=== PATIENT | male | born 1970 | race Caucasian/White ===

== ENCOUNTER 2024-04-22 08:32 | Emergency (ER) | payer MEDICAID, SELFPAY ==
--- NOTE | 2024-04-22 | XR_ITS ---
Examination: MRI lumbar spine without contrast Date and time of exam: April 22, 2024 1244 hrs. Comparison September 23, 2018 Technique: Multiple MRI axial and sagittal sections lumbar spine. Sagittal T2-weighted images, TR 3500, TE 118 T1 weighted transverse sections, TR 688 T8.5, T2-weighted sagittal sections T1 weighted sagittal sections TR 621, TE 30 T2 axial sections, TR 4, 190, TE 84. Findings: Adequate alignment lumbar vertebral bodies No lumbar fracture Moderate degenerative disc disease L3-L4, L5-S1 Disc desiccation lower 3 lumbar levels L5-S1 4 mm central left paracentral disc bulge with mild bilateral L5 ganglionic compression L4-L5 4 mm central lumbar disc bulge L3-L4 4 mm central lumbar disc bulge with mild bilateral L3 ganglionic compression L2-L3 no disc protrusion Impression: L5 is: 4 mm central left paracentral disc bulge with mild bilateral L5 ganglionic compression L4-L5 4 mm central lumbar disc bulge L3-L4 4 mm central lumbar disc bulge with mild bilateral L3 ganglionic compression
[2024-04-22 09:03] VITALS: BP 140/65; PULSE 85; RESP 19; TEMP 36.6; O2SAT 95; BMI 33.7
--- NOTE | 2024-04-22 09:30 | XR_ITS ---
Examination: CT abdomen with intravenous contrast CT pelvis with intravenous contrast 2-D coronal reconstructions 2-D sagittal reconstructions Date and time of exam:April 22, 2024 at 1041 hrs. Indications: Onset lower abdominal pain lower back pain today. CTDI: vol (mGy) 10.3 DLP: (mGycm) 665 Technique: Multiple axial sections of the abdomen and pelvis have been obtained. 64 slice high-resolution scanner used. 3 mm axial sections have been obtained, post intravenous injection 60 cc [id number] 2-D sagittal, coronal reconstructions obtained. Low dose protocols were performed. One or more of the following dose reduction techniques were used; automated exposure control, adjustment of the mA and/or KV according to patient size, use of iterative reconstruction technique. Findings: No focal liver or splenic lesions No gallstones No pancreatic or adrenal mass No renal or ureteral calculi 18 mm posterior right renal cyst Normal appendix No bowel obstruction No diverticulitis Urinary bladder wall thickening up to 7.5 mm No prostatomegaly Moderate disc narrowing L3-L4, L5-S1 with mild lumbar spondylosis L5-S1 4 mm central lumbar disc bulge contiguous with the right and left S1 nerve roots, extending to the right intervertebral foramen, sagittal image 119, moderate right L5 ganglionic compression L4-L5 3 mm central lumbar disc bulge L3-L4 partially calcified 4 mm central lumbar disc bulge extending to the right foraminal region with moderate right L3 ganglionic compression Impression: Normal appendix No bowel obstruction Moderate degenerative disc disease L3-L4, L5-S1 L5-S1 4 mm central lumbar disc bulge contiguous with the right and left S1 nerve roots with moderate right L5 ganglionic compression L4-L5 3 mm central lumbar disc bulge L3-L4 partially calcified 4 mm central lumbar disc bulge with moderate right L3 ganglionic compression
--- NOTE | 2024-04-22 09:32 | PD.EDRME ---
Rapid Medical Screening Exam RME Arrival date/time: 04/22/24 08:32 Chief Complaint: Back Pain/Injury Time Seen by Provider: 04/22/24 09:02 Vital signs: Vital Signs Temperature 97.8 F 04/22/24 09:03 Pulse Rate 85 04/22/24 09:03 Respiratory Rate 19 04/22/24 09:03 Blood Pressure 140/65 H 04/22/24 09:03 Pulse Oximetry (%) 95 04/22/24 09:03 Oxygen Delivery Method Room Air 04/22/24 09:03 Vital signs reviewed by provider: Yes RME Narrative: 54-year-old male presents for evaluation of right flank pain radiating to his right lower quadrant x 1 week. History is significant for prior imaging which showed possible epidural cyst of lumbar spine. Patient endorses nausea without vomiting. Denies fever, chills, chest pain, hematuria, dysuria.
--- NOTE | 2024-04-22 10:00 | EDNOTE_ITS ---
ED Back Injury Pain RME/HPI General Chief Complaint: Back Pain/Injury Stated Complaint: LOWER BACK PAIN Time Seen by Provider: 04/22/24 09:02 Arrival date/time: 04/22/24 08:32 Limitations: no limitations RME / HPI RME / HPI Narrative: 54-year-old male presents for evaluation of right flank pain radiating to his right lower quadrant x 1 week. History is significant for prior imaging which showed possible epidural cyst of lumbar spine. Patient endorses nausea without vomiting. Denies fever, chills, chest pain, hematuria, dysuria. History of Present Illness (HPI) Dr. Jose Grider ED Evaluation: A 54-year-old male with a history of hypertension (not currently on medications) and a previous epidural abscess diagnosed via MRI in 2019, presents to the ED with a complaint of a burning sensation in his pubic area beginning five days ago. He also reports a bulging sensation in the right inguinal hernia region and back pain, primarily localized to the right L3-L4 area. He has a history of similar back pain in 2019, when he was diagnosed with an epidural abscess and an epidural cyst after being transferred to [facility]. He denies fevers, chills, sweats, chest pain, cough, short ness of breath, diarrhea, constipation, or urinary symptoms. Bedside examination reveals a small hernia, palpable only at the right inguinal canal with Valsalva maneuver, without tenderness to palpation. There is no rash or skin breakout. The pain appears to follow the distribution of the L1 dermatome and radiates down to the leg, consistent with an L2 dermatome pattern. Both a CT with contrast and an MRI of the lumbar spine were ordered. The pain is assessed not to originate from the hernia. Dr. Benites, the general surgeon, reviewed the imaging studies and concurred that the symptoms are not due to the small, non-tender hernia. This information was communicated to the patient and his , with a recommendation for follow-up with his primary care provider to conduct nerve conduction studies. In the meantime, [id number] pain remedies were suggested. The patient does not exhibit any symptoms of cauda equina syndrome and walks without a limp. Differential Diagnoses (Ddx) * Lumbar Radiculopathy: Given the dermatomal distribution of the pain and its radiation to the leg. * Epidural Abscess: Given the patient's history, although less likely without systemic symptoms. * Epidural Cyst: Similar to past diagnosis, requiring imaging confirmation. * Inguinal Hernia: While considered, it was determined not to be the primary cause of symptoms. * Neuropathy: Possibly related to hypertensive neuropathy or other nerve involvement. Medical Decision Making (Mdm) * Diagnostic Imaging: * CT Scan with Contrast: To assess for any acute abnormalities. * MRI of Lumbar Spine: To evaluate for epidural abscess, cyst, or other spinal pathology. * Referral for Nerve Conduction Studies: To assess for potential neuropathic cau ses of pain. * Pain Management: [id number] pain medications as needed. * Follow-Up: With primary care provider for ongoing management and further diagnostic workup. * Patient Education: * Explanation of findings and reassurance. * Guidance on activity modification to avoid exacerbating symptoms. Related Data Home Medications ?Medication ?Instructions ?Recorded ?Confirmed gabapentin 300 mg capsule 300 mg PO QDAY 09/23/18 09/23/18 Allergies Allergy/AdvReac Type Severity Reaction Status Date / Time No Known Allergies Allergy Verified 04/22/24 08:33 Review of Systems Review of Systems Systems Reviewed: All systems reviewed, normal except as documented Past Medical History Past Medical History CARDIAC: Positive Hypertension (NOT ON MEDS); Negative Cardiac Disorders or Congestive Heart Failure RESPIRATORY: Negative Respiratory Disorders, Chronic Obstructive Pulmonary D isease (COPD) or Asthma GENITOURINARY: Negative Renal Disease ENDOCRINE: Negative Diabetes Mellitus Type 1 or Diabetes Mellitus Type 2 HEMATOLOGIC: Negative Sickle Cell Disease Social History SMOKING STATUS: Never smoker SUBSTANCE USE: does not use ED Exam General Limitations: Present no limitations General appearance: Present alert and in no apparent distress Head Head exam: Present atraumatic, normocephalic and normal inspection Eye Eye exam: Present normal appearance, PERRL and EOMI ENT ENT exam: Present normal exam, normal oropharynx and mucous membranes moist Neck Neck exam: Present normal inspection, full ROM and trachea midline Chest Chest inspection: Present normal inspection and symmetric chest wall rise Respiratory Respiratory exam: Present normal lung sounds bilaterally Cardiovascular Cardiovascular exam: Present regular rate, normal rhythm and normal heart sounds Abdominal Exam Abdominal exam: Present soft, normal bowel sounds and other (Positive hernia with coughing only, felt at the right inguinal canal) Extremities Exam Extremities exam: Present normal inspection and full ROM Back Exam Back exam: Present normal inspection and full ROM Neurological Exam Neurological exam: Present alert, oriented X3 and CN II-XII intact Psychiatric Psychiatric exam: Present normal affect and normal mood Skin Skin exam: Present warm, dry, intact and normal color Course Quality Measures none Orders Category Date Time Status CT Screening NOW Care 04/22/24 09:30 Active Insert IV NOW Care 04/22/24 09:33 Active MRI Screening NOW Care 04/22/24 10:[address] abdomen pelvis w con Stat Exams 04/22/24 09:30 Completed MR lumbar spine wo con Stat Exams 04/22/24 Completed CBC Stat Lab 04/22/24 09:48 Completed CMP [Comprehensive Metabolic Panel] Stat Lab 04/22/24 09:48 Completed Lipase Stat Lab 04/22/24 09:48 Completed UA, C/S IF [Urinalysis, C/S if Indicated] Stat Lab 04/22/24 09:43 Completed Ketorolac Inj [Toradol Inj] Med 04/22/24 09:30 Discontinued 30 mg IM X1 ONE Ketorolac Inj [Toradol Inj] Med 04/22/24 10:09 Discontinued 30 mg IVP X1 ONE Reevaluation(s) Reevaluation #1: Patient remains clinically stable throughout the emergency department visit. We reviewed all the results, analysis, and treatment plans. Patient is amenable to discharge. Strict return precautions were outlined. Patient was discharged in stable condition. Time: 15:30 Vital Signs Vital signs: Vital Signs Temperature 97.8 F 04/22/24 09:03 Pulse Rate 85 04/22/24 09:03 Respiratory Rate 19 04/22/24 09:03 Blood Pressure 140/65 H 04/22/24 09:03 Pulse Oximetry (%) 95 04/22/24 09:03 Oxygen Delivery Method Room Air 04/22/24 09:03 Pulse ox is 95% on room air which is adequate. Back Pain / Injury MDM Narrative MDM Narrative:: Kacey Alberto am scribing for and in the presence of Dr. Garcia. Patient data External records reviewed:: [facility] previous records (I reviewed ED visit on 09/23/2018) Clinical information provided by:: patient Social determinants that could affect healthcare access:: none Patient has the following chronic illnesses:: hypertension not currently on medications and previous epidurall abscess on MRI in 2019 How is presenting disease/condition affected by chronic disease/condition?: exacerbated by Evaluation data The following diagnostics were reviewed and interpreted by me:: lab results and radiology exam(s) Lab and/or radiology exams considered but not ordered:: None Interpretation Summary: Ordering Physician: Orlando Garcia MD Date of Service: 04/22/24 Procedure(s): MR lumbar spine wo con Accession Number(s): [id number] cc: Orlando Garcia MD; Blair Melchor MD; NO PRIMARY/FAMILY,PHYSICIAN~ Examination: MRI lumbar spine without contrast Date and time of exam: April 22, 2024 1244 hrs. Comparison September 23, 2018 Technique: Multiple MRI axial and sagittal sections lumbar spine. Sagittal T2-weighted images, TR 3500, TE 118 T1 weighted transverse sections, TR 688 T8.5, T2-weighted sagittal sections T1 weighted sagittal sections TR 621, TE 30 T2 axial sections, TR 4, 190, TE 84. Findings: Adequate alignment lumbar vertebral bodies No lumbar fracture Moderate degenerative disc disease L3-L4, L5-S1 Disc desiccation lower 3 lumbar levels L5-S1 4 mm central left paracentral disc bulge with mild bilateral L5 ganglionic compression L4-L5 4 mm central lumbar disc bulge L3-L4 4 mm central lumbar disc bulge with mild bilateral L3 ganglionic compression L2-L3 no disc protrusion Impression: L5 is: 4 mm central left paracentral disc bulge with mild bilateral L5 ganglionic compression L4-L5 4 mm central lumbar disc bulge L3-L4 4 mm central lumbar disc bulge with mild bilateral L3 ganglionic compression Dictated By: Blair Melchor MD Signed By: <Electronically signed by Blair Melchor MD in [place]> 04/22/24 1307 Ordering Physician: Justice Washington PA-C Date of Service: 04/22/24 Procedure(s): CT abdomen pelvis w con Accession Number(s): [id number] cc: Justice Washington PA-C; Blair Melchor MD; NO PRIMARY/FAMILY,PHYSICIAN~ Examination: CT abdomen with intravenous contrast CT pelvis with intravenous contrast 2-D coronal reconstructions 2-D sagittal reconstructions Date and time of exam:April 22, 2024 at 1041 hrs. Indications: Onset lower abdominal pain lower back pain today. CTDI: vol (mGy) 10.3 DLP: (mGycm) 665 Technique: Multiple axial sections of the abdomen and pelvis have been obtained. 64 slice high-resolution scanner used. 3 mm axial sections have been obtained, post intravenous injection 60 cc [id number] 2-D sagittal, coronal reconstructions obtained. Low dose protocols were performed. One or more of the following dose reduction techniques were used; automated exposure control, adjustment of the mA and/or KV according to patient size, use of iterative reconstruction technique. Findings: No focal liver or splenic lesions No gallstones No pancreatic or adrenal mass No renal or ureteral calculi 18 mm posterior right renal cyst Normal appendix No bowel obstruction No diverticulitis Urinary bladder wall thickening up to 7.5 mm No prostatomegaly Moderate disc narrowing L3-L4, L5-S1 with mild lumbar spondylosis L5-S1 4 mm central lumbar disc bulge contiguous with the right and left S1 nerve roots, extending to the right intervertebral foramen, sagittal image 119, moderate right L5 ganglionic compression L4-L5 3 mm central lumbar disc bulge L3-L4 partially calcified 4 mm central lumbar disc bulge extending to the right foraminal region with moderate right L3 ganglionic compression Impression: Normal appendix No bowel obstruction Moderate degenerative disc disease L3-L4, L5-S1 L5-S1 4 mm central lumbar disc bulge contiguous with the right and left S1 nerve roots with moderate right L5 ganglionic compression L4-L5 3 mm central lumbar disc bulge L3-L4 partially calcified 4 mm central lumbar disc bulge with moderate right L3 ganglionic compression Dictated By: Blair Melchor MD Signed By: <Electronically signed by Blair Melchor MD in [place]> 04/22/24 1152 Medications / Prescriptions Medications or Prescriptions considered but not ordered:: None Medication administrations:: Medication Administration History Discontinued Medications Ketorolac Tromethamine (Ketorolac Inj 60 Mg/2 Ml Vial) 30 mg IM X1 ONE Stop: 04/22/24 09:31 Last Admin: 04/22/24 10:18 Dose: Not Given Documented By: DO Non-Admin Reason: ALTERNATE ROUTE Ketorolac Tromethamine (Ketorolac Inj 30 Mg/Ml Vial) 30 mg IVP X1 ONE Stop: 04/22/24 10:10 Last Admin: 04/22/24 10:24 Dose: 30 mg Documented By: DO See above Consultations Consultation(s) initiated? (list below): Yes Consultation #1 (Physician, Specialty, Details): I spoke with general surgeon Dr. Benites regarding the small hernia. States known there is a hernia, he was unable to see on the CT and it is nonsurgical at this time. Time: 14:30 Diagnosis Most likely diagnosis given after review of the tests above:: Neuralgia and neuritis Admission Indicated Admission indicated?: not indicated Admission Request Was there a request for admission?: No Disposition Plan Disposition Plan: Discharge Discharge Attestation Discharge Attestation: The patient and all family members were given an opportunity to ask questions and understood the discharge instructions. Discharge instructions specifically effects, indications for sooner follow up or return to the emergency department, and the expected course of current diagnosis. Patient condition: Stable Discharge Plan Plan Patient Disposition: HOME (Self Care) Patient condition on transfer: Stable Prescriptions/Referrals Prescriptions/Med Rec: No Action gabapentin 300 mg Capsule 300 mg PO QDAY Referrals: No Primary/Family,Physician [Primary Care Provider] - In 1 week Problem List Clinical Impression: Neuralgia and neuritis Patient/Caregiver Discharge Instructions Discharge Activity: as per physical therapy Education Materials: Neurologic Disorder Dx Tests Ch, EMG and NCS Tests Print Language: Honduran Stand Alone Forms: Joan Award Info., Patient Portal Info Letter
[2024-04-22 10:07] LABS: Collection Type, Urine Clean Catch; Squamous Epithelial Cell,Urine 0 /hpf (0-5)
[2024-04-22 10:09] LABS: Basophils # (Auto) 0.1 Thou/mm3 (0.0-0.2); Basophils % (Auto) 1 % (0-2.5); Eosinophils # (Auto) 0.1 Thou/mm3 (0.0-0.5); Eosinophils % (Auto) 2 % (0-10); Hematocrit 48.4 % (41.0-53.0); Hemoglobin 17.5 g/dL (13.5-16.0); Immature Granulocytes % (Auto) 0 % (0-0); Lymphocytes % (Auto) 36 % (10-50); Mean Corpuscular HGB Conc 36.2 g/dl (31.0-37.0); Mean Corpuscular Hemoglobin 30.3 pg (25.0-35.0); Mean Corpuscular Volume 84 fL (80-100); Monocytes # (Auto) 0.4 Thou/mm3 (0.0-0.8); Monocytes % (Auto) 7 % (0-12); Neutrophils % (Auto) 54 % (37-80); Nucleated Red Blood Cell % 0 /100 WBC (0); Platelet Count 240 Thou/mm3 (140-440); RDW Standard Deviation 36.8 fL (35.1-43.9); Red Blood Count 5.78 Miln/mm3 (4.50-5.90); White Blood Count 5.6 Thou/mm3 (3.8-10.6)
[2024-04-22 10:15] LABS: Bilirubin,Urine Negative (Negative); Blood,Urine Negative (Negative); Clarity,Urine Clear (Clear/Hazy); Color,Urine Lt-Yellow (Lt Yel-Yel); Culture Indicated,Urine Not Indicated; Glucose, Urine 4+ (Negative); Ketones,Urine Trace (Negative); Leukocyte Esterase,Urine Negative (Negative); Nitrite,Urine Negative (Negative); Protein,Urine Negative (Neg - Trace); RBC,Urine 6 /hpf (0-3); Specific Gravity,Urine 1.032 (1.001-1.035); Urobilinogen,Urine Negative mg/dL (0.0-1.0); WBC,Urine < 1 /hpf (0-5)
[2024-04-22] MEDS: KETOROLAC INJ 30 MG/ML VIAL IVP (10:24)
[2024-04-22 10:29] LABS: Alanine Aminotransferase 25 U/L (10-49); Albumin, Serum 5.1 gm/dL (3.5-5.0); Alkaline Phosphatase 120 U/L (46-116); Anion Gap 8 (7-16); Aspartate Amino Transferase 14 U/L (0-34); BUN/Creatinine Ratio 14 Ratio (12-20); Bilirubin,Total 0.7 mg/dL (0.3-1.2); Blood Urea Nitrogen 18 mg/dL (9-23); Calcium 9.8 mg/dL (8.3-10.6); Calcium (Corrected) 9.8 mg/dL (8.5-10.1); Carbon Dioxide 24.2 mMol/L (20.0-31.0); Chloride 103 mMol/L (98-107); Creatinine (Component) 1.3 mg/dL (0.6-1.3); Globulin 2.6 gm/dL (2.3-3.5); Glucose 325 mg/dL (74-106); Lipase 74 U/L (12-53); Osmolality,Calculated 285 (275-295); Potassium 4.6 mMol/L (3.4-5.1); Sodium 135 mMol/L (136-145); Total Protein 7.7 gm/dL (5.7-8.2); eGFR > 60 See Note
[2024-04-22 11:05] VITALS: BP 134/87; PULSE 70; RESP 20; TEMP 36.6; O2SAT 95
[2024-04-22 13:12] VITALS: BP 126/80; PULSE 68; RESP 18; TEMP 36.6; O2SAT 96
[2024-04-22 15:47] VITALS: BP 106/72; PULSE 69; RESP 16; TEMP 36.7; O2SAT 96
== END 2024-04-22 16:22 | disposition home or self-care (01) ==
PROVIDERS: Physician Assistant; Emergency Provider Emergency Medicine
DX: M51.16 Intervertebral disc disorders with radiculopathy, lumbar region (principal); M51.17 Intervertebral disc disorders with radiculopathy, lumbosacral region; G95.29 Other cord compression
CPT/HCPCS: 36415; 72148; 74177; 80053; 81001; 83690; 85025; 96374; 99285; A4649; J1885; Q9967